=== PATIENT | female | born 1990 ===

== ENCOUNTER 2017-01-07 00:34 | Emergency (ER) | payer SELFPAY ==
[2017-01-07 00:35] VITALS: BMI 36.6
[2017-01-07 01:48] VITALS: BP 114/66; PULSE 75; RESP 16; TEMP 98; O2SAT 100
[2017-01-07] MEDS ORDERED: Sodium Chloride 0.9% 1,000 ML IV STA (02:57)
--- NOTE | 2017-01-07 03:06 | ED PDOC ---
HPI: Abdomen Time Seen by Provider: 01/07/17 02:00 Chief Complaint (Nursing): GI Problem Chief Complaint (Provider): Abdominal pain History Per: Patient History/Exam Limitations: no limitations Onset/Duration Of Symptoms: Days Outside of [place] travel?: No Current Symptoms Are (Timing): Still Present Location Of Pain/Discomfort: Diffuse Associated Symptoms: Nausea. denies: Fever, Chills, Vomiting, Diarrhea, Urinary Symptoms Additional Complaint(s): The patient is a 26yo female, no pertinent past medical history, presents to the ED for evaluation of dizziness, headache and abdominal pain, present for the past week. Patient reports her dizziness was worse today, prompting her visit today. Patient also reports she has not made a bowel movement in a week and has used OTC laxatives with no relief. States she took tylenol for her symptoms without relief. At present, she offers no additional medical complaints. Abnormal Vaginal Bleeding: No Past Medical History Reviewed: Historical Data, Nursing Documentation, Vital Signs Vital Signs: Last Vital Signs Temp 98.0 F 01/07/17 01:46 Pulse 75 01/07/17 01:46 Resp 16 01/07/17 01:46 BP 114/66 01/07/17 01:46 Pulse Ox 100 01/07/17 04:37 - Medical History PMH: No Chronic Diseases - Surgical History Surgical History: No Surg Hx - Family History Family History: States: Unknown Family Hx - Home Medications Home Medications: Ambulatory Orders Medication Instructions Recorded Fluconazole [Diflucan] 150 mg PO ONCE #1 tab 06/18/15 Metronidazole [Metrogel] 60 gm TP ONCE 5 Days 06/18/15 Meclizine [Meclizine*] 25 mg PO Q6 PRN #20 tab 08/15/15 Ranitidine HCl [Zantac] 150 mg PO BID #20 tablet 01/08/16 Fluconazole [Diflucan] 150 mg PO QWK #2 tab 03/03/16 Omeprazole Magnesium [Prilosec Otc] 20 mg PO DAILY #30 tcp 03/03/16 Amoxicillin/Clavulanate [Augmentin 1 tab PO BID #14 tab 04/01/16 875 MG-125 MG] Fluticasone Nasal [Flonase] 1 spray NS DAILY #0 spr 04/01/16 Docusate [Colace] 100 mg PO BID PRN #14 cap 01/07/17 - Allergies Allergies/Adverse Reactions: Allergies Allergy/AdvReac Type Severity Reaction Status Date / Time Iodinated Contrast- Oral and Allergy RASH Verified 04/01/16 16:30 IV Dye ibuprofen AdvReac SWELLING Verified 05/05/16 15:55 Review of Systems ROS Statement: Except As Marked, All Systems Reviewed And Found Negative Constitutional: Negative for: Fever Gastrointestinal: Positive for: Nausea, Abdominal Pain, Constipation. Negative for: Vomiting, Diarrhea Genitourinary Female: Negative for: Dysuria, Frequency, Hematuria Neurological: Positive for: Dizziness Physical Exam - Reviewed Nursing Documentation Reviewed: Yes Vital Signs Reviewed: Yes - Physical Exam Appears: Positive for: Well, Non-toxic, No Acute Distress Head Exam: Positive for: ATRAUMATIC, NORMAL INSPECTION, NORMOCEPHALIC Skin: Positive for: Normal Color, Warm, DRY Eye Exam: Positive for: EOMI, Normal appearance, PERRL Neck: Positive for: Normal, Painless ROM Cardiovascular/Chest: Positive for: Regular Rate, Rhythm Respiratory: Positive for: CNT, Normal Breath Sounds Gastrointestinal/Abdominal: Positive for: Normal Exam, Soft. Negative for: Tenderness Extremity: Positive for: Normal ROM. Negative for: Deformity, Swelling Neurologic/Psych: Positive for: Alert, Oriented - Laboratory Results Result Diagrams: 01/07/17 03:35 01/07/17 03:35 - ECG O2 Sat by Pulse Oximetry: 100 Medical Decision Making Medical Decision Making: Time: 0255 Impression: Abdominal pain, constipation Plan: -- Pepcid 20 mg IV -- Enulose 20gm PO -- Phosphate enema 135 ml IA -- Zofran 4mg IV -- IV Fluids -- Labs Reassess pt feels slightly better noticied that feels better answered questions encouraged high fiber diet Time: 0436 Patient reports feeling much better and states she does not have any pain at present. Stable for discharge home. pt aware of anemia Scribe Attestation: Documented by Luci Greenberg acting as a scribe for Brodie Huff MD. Provider Attestation: All medical record entries made by the Scribe were at my direction and personally dictated by me. I have reviewed the chart and agree that the record accurately reflects my personal performance of the history, physical exam, medical decision making, and the department course for this patient. I have also personally directed, reviewed, and agree with the discharge instructions and disposition. Disposition - Clinical Impression Clinical Impression: Constipation, Constipation - Patient ED Disposition Is Patient to be Admitted: No Counseled Patient/Family Regarding: Studies Performed, Diagnosis, Need For Followup - Disposition Referrals: [facility] [Outside] [facility] [Outside] Disposition: Routine/Home Disposition Time: 04:45 Condition: IMPROVED Additional Instructions: follow up with your primary doctor in 1-2 days high fiber diet take colace for constipation return to the ED with any worsening or concerning symptoms. Prescriptions: Docusate [Colace] 100 mg PO BID PRN #14 cap PRN Reason: Constipation Instructions: Constipation (ED), High Fiber Diet (ED) Forms: [employer] ([place]ian)
[2017-01-07 03:42] LABS: BASO # 0.1 K/uL (0.0-0.2); BASO % 0.8 % (0.0-2.0); EOS # 0.2 K/uL (0.0-0.7); EOS % 1.2 % (0.0-4.0); LYMPH # 3.6 K/uL (1.0-4.3); LYMPH % 28.1 % (20.0-40.0); MEAN CELL VOLUME 72.1 fl (81.0-99.0); MEAN CORPUSCULAR HEMOGLOBIN 23.1 pg (27.0-31.0); MEAN PLATELET VOLUME 8.2 fl (7.2-11.7); MONO # 1.1 K/uL (0.0-0.8); MONO % 8.3 % (0.0-10.0); NEUT # 7.8 K/uL (1.8-7.0); NEUT % 61.6 % (50.0-75.0); NRBC % 0.2 % (0.0-0.0); WHITE BLOOD COUNT 12.7 K/uL (4.8-10.8)
[2017-01-07 03:50] LABS: ALB/GLOB RATIO 1.2 (1.0-2.1); ALKALINE PHOSPHATASE 90 U/L (38-126); ALT/SGPT 36 U/L (9-52); AST/SGOT 27 U/L (14-36); BILIRUBIN,TOTAL 0.4 mg/dl (0.2-1.3); BLOOD UREA NITROGEN 10 mg/dl (7-17); CALCIUM 9.1 mg/dL (8.4-10.2); CARBON DIOXIDE 26 mmol/L (22-30); CHLORIDE 106 mmol/L (98-107); GFR AFRICAN-AMERICAN > 60; GLUCOSE,RANDOM 95 mg/dL (65-105); POTASSIUM 3.9 MMOL/L (3.6-5.0); SODIUM 139 mmol/l (132-148); TOTAL PROTEIN 7.2 G/DL (6.3-8.2)
== END 2017-01-07 05:20 | disposition home or self-care (01) ==
LOC: H.ER 00:34
DX: K59.00 Constipation, unspecified (principal); D64.9 Anemia, unspecified
CPT/HCPCS: 80053; 81025; 84702; 85025; 96374; 99284; J2405; J7040